=== PATIENT | male | born 1935 | race Caucasian/White ===

== ENCOUNTER 2019-01-27 06:16 | Day surgery (SDC) | payer MEDICARE, BC ==
[~2019-01-27] VITALS: Ht 180.3 cm; Wt 83.1 kg
[2019-01-27] VITALS (18 sets, daily range): BP systolic 93–155; BP diastolic 61–104
[2019-01-27] MEDS ORDERED: fentaNYL/PF 50MCG/1 ML 2ML syringe IV ONE (06:30)
[2019-01-27] MEDS ORDERED: MIDAZolam 5mg/ml 2ml vial IV ONE (06:30)
[2019-01-27] MEDS ORDERED: normal saline 1000ml 1,000 ML IV SCH (06:30)
[2019-01-27] MEDS ORDERED: CALC-1197 PO (06:53)
[2019-01-27] MEDS ORDERED: DILT360C29 PO (06:53)
[2019-01-27] MEDS ORDERED: PANT-47 PO (06:53)
[2019-01-27] MEDS ORDERED: NIAC500C12 PO (06:53)
[2019-01-27] MEDS ORDERED: MELA10TA2 PO (06:53)
[2019-01-27] MEDS ORDERED: APIX5TAB3 PO (06:53)
[2019-01-27] MEDS ORDERED: GUAI400T77 PO (06:53)
[2019-01-27] MEDS ORDERED: LISI-604 PO (06:53)
[2019-01-27] MEDS ORDERED: COLC1TAB2 (06:53)
[2019-01-27] MEDS ORDERED: URSO250T11 PO (06:53)
[2019-01-27] MEDS ORDERED: LEVO50TA PO (06:53)
[2019-01-27] MEDS ORDERED: RYT225T PO (06:53)
[2019-01-27] MEDS ORDERED: ACET-812 PO (06:53)
[2019-01-27 07:31] LABS: BASOPHILS % (AUTO) 0.5 % (0-1); EOSINOPHILS # (AUTO) 0.2 X10'3 (0-0.9); EOSINOPHILS % (AUTO) 2.9 % (0-6); HEMATOCRIT 38.9 % (42.0-52.0); HEMOGLOBIN 12.9 g/dl (14.0-17.9); LYMPHOCYTES # (AUTO) 1.6 X10'3 (1.1-4.8); LYMPHOCYTES % (AUTO) 25.1 % (21-51); MEAN CORPUSCULAR HEMOGLOBIN 34.8 PG (27.0-31.0); MEAN CORPUSCULAR HGB CONC 33.1 g/dL (33.0-36.5); MEAN CORPUSCULAR VOLUME 105.2 FL (78-98); MONOCYTES # (AUTO) 0.7 X10'3 (0-0.9); NEUTROPHILS # (AUTO) 3.7 X10'3 (1.8-7.7); NEUTROPHILS % (AUTO) 60.5 % (42-75); PLATELET COUNT 175 X10'3 (140-440); RED CELL DISTRIBUTION WIDTH 14.3 % (11.5-14.5); WHITE BLOOD COUNT 6.2 X10'3 (4.5-11.0)
[2019-01-27 07:39] LABS: ALBUMIN 3.4 G/DL (3.4-5.0); ANION GAP 8 (8-16); BLOOD UREA NITROGEN 27 MG/DL (7-18); BUN/CREATININE RATIO 17.4 (5.4-32.0); CHLORIDE 108 MMOL/L (99-107); CREATININE 1.55 MG/DL (0.60-1.10); GLUCOSE 96 MG/DL (70-104); MAGNESIUM 1.9 MG/DL (1.5-2.4); POTASSIUM 4.1 MMOL/L (3.5-5.1); SODIUM 141 MMOL/L (135-145); TOTAL CARBON DIOXIDE 25.1 MMOL/L (24-32); eGFR 43 ML/MIN
[2019-01-27 07:49] LABS: INR 1.2 INR; PROTHROMBIN TIME 11.6 SECONDS (9.0-12.0)
[2019-01-27] MEDS ORDERED: adenosine 3mg/ml 2ml vial IV STA ×2 (08:13)
== END 2019-01-27 11:00 | disposition home or self-care (01) ==
LOC: SSTAY O 06:16 → EDSTATUS 08:00 → SSTAY O 11:00
PROVIDERS: ATTEND Internal Medicine Cardiovascular Disease
DX: I48.92 Unspecified atrial flutter (principal); I08.1 Rheumatic disorders of both mitral and tricuspid valves; I47.1 Supraventricular tachycardia; Z79.899 Other long term (current) drug therapy; I10 Essential (primary) hypertension
CPT/HCPCS: 36415; 80048; 83735; 85025; 85610; 92960; 93005; 93312; J0153; J2250; J3010; J7030

== ENCOUNTER 2020-04-27 06:21 | Inpatient (IN) | payer MEDICARE, BC ==
[2020-04-20 15:52] LABS: BASOPHILS # (AUTO) 0.1 X10'3 (0-0.2); BASOPHILS % (AUTO) 0.8 % (0-1); EOSINOPHILS # (AUTO) 0.2 X10'3 (0-0.9); EOSINOPHILS % (AUTO) 2.3 % (0-6); LYMPHOCYTES # (AUTO) 1.9 X10'3 (1.1-4.8); LYMPHOCYTES % (AUTO) 24.1 % (21-51); MEAN CORPUSCULAR HEMOGLOBIN 34.7 PG (27.0-31.0); MEAN CORPUSCULAR HGB CONC 33.7 g/dL (33.0-36.5); MEAN CORPUSCULAR VOLUME 103.1 FL (78-98); MONOCYTES # (AUTO) 0.8 X10'3 (0-0.9); MONOCYTES % (AUTO) 10.1 % (2-12); NEUTROPHILS # (AUTO) 5.1 X10'3 (1.8-7.7); NEUTROPHILS % (AUTO) 62.7 % (42-75); PRE OP HEMATOCRIT 40.8 % (42.0-52.0); PRE OP HEMOGLOBIN 13.7 g/dL (14.0-17.9); PRE OP PLATELET COUNT 188 X10'3 (140-440); RED BLOOD COUNT 3.95 X10'6 (4.70-6.10); RED CELL DISTRIBUTION WIDTH 14.5 % (11.5-14.5)
[2020-04-20 16:00] LABS: PRE OP INR 1.1 INR; PRE OP PROTIME 10.9 SECONDS (9.0-12.0)
[2020-04-20 16:10] LABS: ALBUMIN 3.7 G/DL (3.4-5.0); ALBUMIN/GLOBULIN RATIO 1.1 (1.1-1.5); ALKALINE PHOSPHATASE 102 IU/L (46-116); BLOOD UREA NITROGEN 27 MG/DL (7-18); BUN/CREATININE RATIO 14.8 (5.4-32.0); CHLORIDE 106 MMOL/L (99-107); CREATININE 1.83 MG/DL (0.60-1.10); PRE OP ALT 23 U/L (30-65); PRE OP ANION GAP 8 (8-16); PRE OP AST 21 U/L (10-37); PRE OP BILIRUB, TOTAL 0.5 MG/DL (0.0-1.0); PRE OP GLUCOSE 107 MG/DL (70-104); PRE OP POTASSIUM 4.4 MMOL/L (3.4-5.1); PRE OP SODIUM 140 MMOL/L (135-145); eGFR 35 ML/MIN
[~2020-04-27] VITALS: Ht 180.3 cm; Wt 79.0 kg
[2020-04-27] VITALS (15 sets, daily range): BP systolic 125–160; BP diastolic 71–96
[~2020-04-27 06:21] MED LIST: ACET-812 PO; APIX5TAB3 PO; CALC-1197 PO; COLC1TAB2 PO; DILT-35 PO; LEVO50TA PO; NABU750T2 PO; NIAC500C12 PO; PANT-47 PO; PROP325C5 PO; URSO250T11 PO; ceFAZolin 2gm in dextrose, iso 50 ML IV ONE; famotidine 20mg tablet PO ONE; ringers solution, lacted 1,000 ML IV SCH; tranexamic acid inj. 1,000 MG in normal saline 100 ML IV ONE; vancomycin 1,500 MG in NS 500ml IV soln IV ONE
[2020-04-27] MEDS ORDERED: tranexamic acid inj. 800 MG in normal saline 100ml IV soln 100 ML IV ONE ×5 (10:40→17:00)
[2020-04-27] MEDS ORDERED: ROPIVAcaine 0.5% (5mg/ml) 30ml vial ONE ×2 (10:47→13:42)
[2020-04-27] MEDS ORDERED: midazolam 2 mg/2 ml injection ONE ×2 (11:02)
[2020-04-27] MEDS ORDERED: fentaNYL/PF 50MCG/1 ML 2ML syringe ONE (11:02)
[2020-04-27] MEDS ORDERED: propofol inj 20 ML IV ONE (11:04)
[2020-04-27] MEDS ORDERED: sevoflurane 250ml liquid IH ONE (11:09)
[2020-04-27] MEDS ORDERED: ROPIVAcaine 0.2%/PF PUMP/bolus 550 ML INTERSCALE SCH (12:43)
[2020-04-27] MEDS ORDERED: ringers solution, lacted 1,000 ML IV SCH (12:43)
[2020-04-27] MEDS ORDERED: meperidine/PF 25mg/ml syringe IV PRN ×3 (12:45)
[2020-04-27] MEDS ORDERED: morphine 4 MG/ML inj SYRINge IV PRN (12:45)
[2020-04-27] MEDS ORDERED: morphine 2 MG/ML inj. syringe IV PRN (12:45)
[2020-04-27] MEDS ORDERED: ondansetron/PF 4mg/2ml inj IV PRN ×2 (12:45→14:05)
[2020-04-27] MEDS ORDERED: proCHLORperazine 10 MG/2 ml inj IV PRN (12:45)
[2020-04-27] MEDS ORDERED: ROPIVAcaine 0.2% (10 MG/5 ML) BOLUS INJECTION INTERSCALE PRN (12:45)
--- NOTE | 2020-04-27 13:57 | NUR ---
Received from OR via , accompanied by Anesthesiologist DR VEGA and report given by Anesthesiolgist. AWAKENS TO VOICE. VITALS STABLE. DRESSING DI. BOLA PAIN. LUE IN SIMPLE SLING. BURCIAGA WITH CLEAR URINE.
[2020-04-27] MEDS ORDERED: acetaminophen 325mg tablet PO PRN ×2 (14:05→20:00)
[2020-04-27] MEDS ORDERED: magnesium hydroxide 30ml (MOM) UD suspension PO PRN (14:05)
[2020-04-27] MEDS ORDERED: HYDROmorphone 1 mg/ml syringe IV PRN (14:05)
[2020-04-27] MEDS ORDERED: HYDROcodone/acetaminophen 10/325mg tab PO PRN ×2 (14:05)
[2020-04-27] MEDS ORDERED: diphenhydrAMINE 25mg capsule PO PRN ×2 (14:05)
[2020-04-27] MEDS ORDERED: bisacodyl 10mg suppository rectal RC PRN (14:05)
[2020-04-27] MEDS ORDERED: HYDROmorphone inj. 0.5 MG/0.5 ML DISP.SYRIN IV PRN (14:05)
--- NOTE | 2020-04-27 14:57 | NUR ---
Report called to receiving nurse. Transferred via BED Belongings . Special Issues communicated to receiving nurse. AWAKE AND ORIENTED. VITALS STABLE. DRESSING DI. BOLA PAIN. TO SURGICAL RM 350B AT THIS TIME.
[2020-04-27] MEDS: ceFAZolin 1GM/D5W- ADD-VANTAGE 50 ML IV SCH (17:26)
--- NOTE | 2020-04-27 18:00 | NUR ---
Patient in room ORTHO 4013. I have received report from Kallie and had the opportunity to ask questions and assume patient care.
[2020-04-27] MEDS: niacin 500mg timed-release capsule PO SCH (20:00)
[2020-04-27] MEDS: PROPAFENONE HCL 325 MG PO SCH (20:00)
[2020-04-27] MEDS ORDERED: vancomycin/NS 1 GM ADD-VANTAGE 250 ML IV SCH (20:00)
[2020-04-27] MEDS: Ursodiol 250 MG PO SCH (20:00)
[2020-04-27] MEDS: NABUMETONE 750 MG PO SCH (20:00)
[2020-04-27] MEDS: apixaban 5mg tablet PO SCH (20:31)
[2020-04-27] MEDS: diltiazem CD 120mg capsule (once-daily) PO SCH (20:32)
[2020-04-27] MEDS: calcium carbonate/vitamin D3 tablet PO SCH (20:32)
[2020-04-27] MEDS ORDERED: PROBENECID PO SCH (21:00)
[2020-04-27] MEDS ORDERED: COLCHICINE PO SCH (21:00)
[2020-04-27] MEDS ORDERED: sennosides 8.6mg tablet PO SCH (21:00)
--- NOTE | 2020-04-28 01:00 | NUR ---
Problems reprioritized. Patient report given, questions answered & plan of care reviewed with Kasia RN Patient transferred to 4th floor.
[2020-04-28 01:05] VITALS: BP 166/95
[2020-04-28] MEDS: potassium cl 20mEq in 1/2 NS 1,000 ML IV SCH ×3 (02:00→06:02)
[2020-04-28] MEDS: ceFAZolin 1GM/D5W- ADD-VANTAGE 50 ML IV SCH (02:05)
[2020-04-28 05:07] LABS: BASOPHILS % (AUTO) 0.2 % (0-1); EOSINOPHILS % (AUTO) 0 % (0-6); HEMATOCRIT 37.9 % (42.0-52.0); HEMOGLOBIN 12.6 g/dl (14.0-17.9); LYMPHOCYTES % (AUTO) 7.9 % (21-51); MEAN CORPUSCULAR HGB CONC 33.3 g/dL (33.0-36.5); MEAN CORPUSCULAR VOLUME 102.3 FL (78-98); MONOCYTES # (AUTO) 0.9 X10'3 (0-0.9); MONOCYTES % (AUTO) 7.1 % (2-12); NEUTROPHILS # (AUTO) 10.9 X10'3 (1.8-7.7); NEUTROPHILS % (AUTO) 84.8 % (42-75); PLATELET COUNT 180 X10'3 (140-440); RED BLOOD COUNT 3.71 X10'6 (4.70-6.10); RED CELL DISTRIBUTION WIDTH 14.3 % (11.5-14.5); WHITE BLOOD COUNT 12.9 X10'3 (4.5-11.0)
[2020-04-28 05:22] LABS: ANION GAP 11 (8-16); CHLORIDE 106 MMOL/L (99-107); SODIUM 140 MMOL/L (135-145); TOTAL CARBON DIOXIDE 23.2 MMOL/L (24-32)
[2020-04-28 06:00] VITALS: BP 154/92
--- NOTE | 2020-04-28 06:10 | NUR ---
Patient in room ORTHO 4013. I have received report from Delia LEA and had the opportunity to ask questions and assume patient care.
--- NOTE | 2020-04-28 06:21 | NUR ---
Problems reprioritized. Patient report given, questions answered & plan of care reviewed with VENU BYRD.
[2020-04-28] MEDS ORDERED: pantoprazole 40mg Tablet.DR PO SCH (08:00)
[2020-04-28] MEDS: Ursodiol 250 MG PO SCH (08:00)
[2020-04-28] MEDS: NABUMETONE 750 MG PO SCH (08:00)
[2020-04-28] MEDS ORDERED: levoTHYROXINE 25mcg tablet PO SCH (08:00)
[2020-04-28] MEDS: niacin 500mg timed-release capsule PO SCH (08:00)
[2020-04-28] MEDS: PROPAFENONE HCL 325 MG PO SCH (08:00)
[2020-04-28] MEDS: calcium carbonate/vitamin D3 tablet PO SCH (08:01)
[2020-04-28] MEDS: apixaban 5mg tablet PO SCH (08:01)
[2020-04-28] MEDS: diltiazem CD 120mg capsule (once-daily) PO SCH (08:01)
[2020-04-28] MEDS ORDERED: aspirin 325mg tablet PO SCH (08:30)
[2020-04-28] MEDS ORDERED: ONQPUMP ADDCANAL (10:34)
[2020-04-28 11:00] VITALS: BP 174/106
[2020-04-28] MEDS ORDERED: HYDROcodone/acetaminophen 5mg/325mg tablet PO PRN ×2 (12:35)
--- NOTE | 2020-04-28 12:49 | NUR ---
Joint replacement consult: Pt/family seen by KIRSTEN for written/verbal high protein ed w/ RD contact information provided. Addendum: 04/28/20 at [address] Amended: Links added.
[2020-04-28] MEDS ORDERED: hyDRALAzine 10mg tablet PO ONE (15:45)
--- NOTE | 2020-04-30 09:24 | NUR ---
Case Management DC follow up: spoke to pt via telephone. S/P: Blake RODGERS Reports: "tough couple of nights, usual urinary issues, getting up multiple times during the night". Compliant w/after care of shoulder surgery, Spouse and son (ICU Dr) assisting pt at home. Denies: acute cp, SOB, resp distress, vertigo, syncope,weakness, blurry vision, N/V, KOROMA, emergent general pain, abd tenderness/distension, fever. Denies s/s infection to surg site, arm. Verbalizes understanding of s/s that warrant 9-11/ER visit for evaluation. Verbalizes understanding of Rx and why prescribed, resumes current Rx/taking as ordered, no ase r/t polypharmacy. Acknowledges need to schedule/keep follow up appts w/ PCP as needed, Dr Marc. : Needs met, questions answered at DC, no further questions at this time.
== END 2020-04-28 16:00 | disposition home or self-care (01) | DRG 483 ==
LOC: PAS IN 06:21 → UNDOADMIN 06:21 → EDSTATUS 09:15 → PAS IN 14:02 → SUR 3N 15:02 → ORTHO 4S 04-28 01:02
PROVIDERS: ADMIT Orthopaedic Surgery; ATTEND Orthopaedic Surgery
PROC: 0LS40ZZ Reposition Left Upper Arm Tendon, Open Approach (ICD-10-PCS; 2020-04-27)
PROC: 3E0T3BZ Introduction of Anesthetic Agent into Peripheral Nerves and Plexi, Percutaneous Approach (ICD-10-PCS; 2020-04-27)
PROC: 0RRK00Z Replacement of Left Shoulder Joint with Reverse Ball and Socket Synthetic Substitute, Open Approach (ICD-10-PCS; principal; 2020-04-27 11:09)
DX: M19.012 Primary osteoarthritis, left shoulder (principal); D62 Acute posthemorrhagic anemia; I48.20 Chronic atrial fibrillation, unspecified; E03.9 Hypothyroidism, unspecified; E78.5 Hyperlipidemia, unspecified; I10 Essential (primary) hypertension; G47.30 Sleep apnea, unspecified; M75.122 Complete rotator cuff tear or rupture of left shoulder, not specified as traumatic; M79.609 Pain in unspecified limb; K21.9 Gastro-esophageal reflux disease without esophagitis; I25.10 Atherosclerotic heart disease of native coronary artery without angina pectoris; M17.12 Unilateral primary osteoarthritis, left knee; M65.812 Other synovitis and tenosynovitis, left shoulder; Z85.51 Personal history of malignant neoplasm of bladder; Z95.5 Presence of coronary angioplasty implant and graft; Z79.899 Other long term (current) drug therapy
CPT/HCPCS: 36415; 80051; 80053; 82948; 84443; 85025; 85610; 85730; 87081; 93005; 97110; 97112; 97116; 97161; 97530; A4565; A4618; A7000; C1758; C1776; G0378; J0690; J1170; J2250; J2704; J2795; J3010; J3370; J3480; J7040; J7120

== ENCOUNTER → 2021-05-02 | Outpatient (CLI) | payer MEDICARE, BC ==
[~2021-05-02] VITALS: Ht 180.3 cm; Wt 77.0 kg
[~2021-05-02] MED LIST changes: +AMIO200T61 PO; +BUPIVACAINE liposomal/PF 13.3 MG/ML vial IM ONE; +BUPIVAcaine/PF 2.5 mg/ml (0.25%) 30ml vial ONE; +BUPIVAcaine/PF 2.5mg/ml (0.25%) 10ml vial ONE; -CALC-1197 PO; +CALC-1215 PO; +NABU-141 PO; -NABU750T2 PO; +NIAC1CAP PO; +ONQPUMP ADDCANAL; +OSC500T PO; -URSO250T11 PO; +URSO250T12 PO; +URSO250T3 PO; +VITA-268 PO; -ceFAZolin 2gm in dextrose, iso 50 ML IV ONE; +cefazolin/dext.iso 2gm/100ml IV ONE; -tranexamic acid inj. 1,000 MG in normal saline 100 ML IV ONE; -vancomycin 1,500 MG in NS 500ml IV soln IV ONE
[2021-05-02 11:16] LABS: CLARITY,URINE CLEAR (Clear); COLOR,URINE STRAW (Yellow); GLUCOSE, URINE NEGATIVE (Neg); KETONES,URINE NEGATIVE (Neg); LEUKOCYTE ESTERASE ,URINE NEGATIVE (Neg); NITRITES, URINE NEGATIVE (Neg); OCCULT BLOOD,URINE NEGATIVE (Neg); PROTEIN,URINE NEGATIVE (Neg); UROBILINOGEN,URINE 0.2 E.U/dL (0.2-1.0)
[2021-05-02 11:20] LABS: UA COLLECTION TYPE CLN CATCH MIDSTREAM
[2021-05-02 11:22] LABS: BASOPHILS % (AUTO) 0.5 % (0-1); EOSINOPHILS # (AUTO) 0.2 X10'3 (0-0.9); EOSINOPHILS % (AUTO) 2.2 % (0-6); LYMPHOCYTES % (AUTO) 20.7 % (21-51); MEAN CORPUSCULAR HEMOGLOBIN 32.5 PG (27.0-31.0); MEAN CORPUSCULAR VOLUME 98.4 FL (78-98); MEAN PLATELET VOLUME 6.9 FL (7.4-10.4); MONOCYTES # (AUTO) 1.2 X10'3 (0-0.9); MONOCYTES % (AUTO) 12.6 % (2-12); NEUTROPHILS # (AUTO) 6.1 X10'3 (1.8-7.7); PRE OP HEMATOCRIT 39.8 % (42.0-52.0); PRE OP HEMOGLOBIN 13.1 g/dL (14.0-17.9); PRE OP PLATELET COUNT 193 X10'3 (140-440); RED BLOOD COUNT 4.04 X10'6 (4.70-6.10); RED CELL DISTRIBUTION WIDTH 17.1 % (11.5-14.5)
[2021-05-02 11:27] LABS: PRE OP PROTIME 10.6 SECONDS (9.0-12.0)
[2021-05-02 11:41] LABS: ALBUMIN 3.7 G/DL (3.4-5.0); ALKALINE PHOSPHATASE 122 IU/L (46-116); BLOOD UREA NITROGEN 29 MG/DL (7-18); BUN/CREATININE RATIO 17.9 (5.4-32.0); CALCIUM 9.3 MG/DL (8.5-10.1); CHLORIDE 104 MMOL/L (99-107); CREATININE 1.62 MG/DL (0.60-1.10); PRE OP ALT 21 U/L (30-65); PRE OP ANION GAP 6 (8-16); PRE OP AST 25 U/L (10-37); PRE OP BILIRUB, TOTAL 0.6 MG/DL (0.0-1.0); PRE OP GLUCOSE 99 MG/DL (70-104); PRE OP POTASSIUM 4.4 MMOL/L (3.4-5.1); PRE OP SODIUM 138 MMOL/L (135-145); TOTAL CARBON DIOXIDE 27.7 MMOL/L (24-32); TOTAL PROTEIN 7.4 G/DL (6.4-8.2); eGFR 41 ML/MIN
[2021-05-09 06:47] VITALS: BP 128/79
--- NOTE | 2021-05-09 06:58 | NUR ---
COVID VACCINE CONFIRMED VISUALLY X 2 DOSES [facility] AT [facility]
--- NOTE | 2021-05-09 08:26 | NUR ---
SURGERY CANCELED NO ROBOT TECH. PIV D/C AND PATIENT D/C HOME TO RESCHEDUALED AT A LATER DATE.
== END | disposition home or self-care (01) ==
LOC: LAB 08:00 → PAS IN 05-09 05:37 → UNDOADMIN 05-09 05:37 → EDSTATUS 05-09 08:00 → UNDODISIN 05-09 19:37
PROVIDERS: ATTEND Surgery
DX: C34.31 Malignant neoplasm of lower lobe, right bronchus or lung (principal); Z53.8 Procedure and treatment not carried out for other reasons; E78.5 Hyperlipidemia, unspecified; I25.10 Atherosclerotic heart disease of native coronary artery without angina pectoris; E03.9 Hypothyroidism, unspecified; K21.9 Gastro-esophageal reflux disease without esophagitis; M10.9 Gout, unspecified; G47.30 Sleep apnea, unspecified; I12.9 Hypertensive chronic kidney disease with stage 1 through stage 4 chronic kidney disease, or unspecified chronic kidney disease; N18.9 Chronic kidney disease, unspecified; Z85.51 Personal history of malignant neoplasm of bladder; Z85.828 Personal history of other malignant neoplasm of skin; Z90.49 Acquired absence of other specified parts of digestive tract; Z95.5 Presence of coronary angioplasty implant and graft; Z79.899 Other long term (current) drug therapy; Z95.2 Presence of prosthetic heart valve
CPT/HCPCS: 36415; 71045; 80053; 81003; 82948; 84443; 85025; 85610; 85730; 86885; 86900; 86901; 87081; C9290; J3490; J7120